=== PATIENT | female | born 1975 | race Caucasian/White ===

== ENCOUNTER → 2016-10-03 | Outpatient (CLI) | payer MEDICAID ==
--- NOTE | 2016-10-13 09:18 | MA ---
Screening Digital Mammogram With iCAD Analysis Clinical Indications: Routine screening. Her mother was diagnosed with breast cancer in her 50s and then again in her 60s. Technique: Standard cephalocaudal and mediolateral oblique projections were obtained. This examination was processed by the iCAD computer aided detection system. Comparison: April 2011. Breast density: Type C; Heterogeneously dense. Findings: CAD was reviewed. No masses, suspicious calcifications or other signs of malignancy are identified. There has been no significant change in the appearance of either breast. Impression: Negative mammogram. BI-RADS 1. Recommendation: Routine mammographic screening in 1 year as long as physical examination is negative in this patient with heterogeneously dense breast tissue. [facility] will send a result letter to the patient. Dense breast parenchyma diminishes mammographic sensitivity. Negative mammography should not preclude additional workup of a clinically suspicious finding. The patient's information is entered into a reminder system with a target due date for her next mammogram. [facility]
== END ==
LOC: BRMIMAGING 11:47
DX: Z12.31 Encounter for screening mammogram for malignant neoplasm of breast (principal); Z80.3 Family history of malignant neoplasm of breast
CPT/HCPCS: G0202

== ENCOUNTER → 2018-02-05 | Outpatient (CLI) | payer MEDICAID | LOC: BRMIMAGING 16:22 | PROVIDERS: ATTEND Registered Nurse | DX: M25.521 Pain in right elbow (principal); M79.631 Pain in right forearm; M62.830 Muscle spasm of back; M43.13 Spondylolisthesis, cervicothoracic region; M48.02 Spinal stenosis, cervical region | CPT/HCPCS: 72050-PO; 73080-PO; 73090-PO ==